=== PATIENT | female | born 1990 | race Two or more races ===

== ENCOUNTER 2018-02-16 11:44 | Emergency (ER) | payer MEDICAID ==
[~2018-02-16] VITALS: Ht 177.8 cm; Wt 89.8 kg
[2018-02-16] MEDS ORDERED: ONDANSETRON ODT 4 MG TAB PO ONE (12:15)
[2018-02-16 13:24] LABS: Basophils # (auto) 0 uL; Basophils % (auto) 0.4 % (0.0-2.0); Eosinophils # (auto) 0 uL; Eosinophils % (auto) 0.1 % (0.0-7.0); Hematocrit 44.8 % (36.0-46.0); Hemoglobin 14.9 g/dL (12.2-16.2); Lymphocytes # (auto) 1.1 uL; Lymphocytes % (auto) 11.8 % (10.0-50.0); Mean Corpuscular Hemoglobin 30.3 pg (28.0-32.0); Mean Corpuscular Hgb Conc. 33.2 g/dL (32.0-36.0); Mean Corpuscular Volume 91.2 fL (80.0-100.0); Monocytes # (auto) 0.5 uL; Monocytes % (auto) 5.1 % (0.0-12.0); Neutrophils # (auto) 7.7 uL; Neutrophils % (auto) 82.6 % (37.0-80.0); Nucleated Red Blood Cells % 0.1 %; Platelet Count (auto) 186 10^3/uL (140-450); Red Blood Cells 4.91 10^6/uL (4.0-5.20); Red Cell Distribution Width 12.5 % (11.8-14.3); White Blood Cell 9.3 10^3/uL (4.4-10.8)
[2018-02-16] MEDS ORDERED: cefTRIAXone 1GM/50ML D5W 50 ML IV ONE (13:30)
[2018-02-16] MEDS ORDERED: MECLIZINE HCL 25 MG TAB PO ONE (13:30)
[2018-02-16 14:09] LABS: Chloride 108 mmol/L (98-107); Potassium 4.5 mmol/L (3.5-5.1); Sodium 139 mmol/L (136-145)
[2018-02-16 14:10] LABS: Alanine Aminotransferase 27 U/L (13-56); Albumin 4.2 g/dL (3.4-5.0); Alkaline Phosphatase 99 U/L (45-117); Anion Gap 9 (5-15); Aspartate Aminotransferase 17 U/L (15-37); BUN/Creatinine Ratio 16.5; Bilirubin, Total 0.4 mg/dL (0.2-1.0); Blood Urea Nitrogen 14 mg/dL (7-18); Calcium 8.5 mg/dL (8.5-10.1); Carbon Dioxide 22 mmol/L (21-32); GFR African American 105 mL/min; GFR Non-African American 87 mL/min; Glucose 108 mg/dL (74-106); Total Protein 8.2 g/dL (6.4-8.2)
[2018-02-16 18:21] VITALS: BP 122/71
== END 2018-02-16 17:58 | disposition home or self-care (01) ==
LOC: ER 11:44
DX: H81.13 Benign paroxysmal vertigo, bilateral (principal); J18.9 Pneumonia, unspecified organism
CPT/HCPCS: 36415; 70450; 71046; 80053; 83735; 84443; 84484; 84702; 85025; 87040; 93005; 96365; 99284; J0696; J8597; Q0162

== ENCOUNTER 2018-04-14 10:02 | Emergency (ER) | payer MEDICAID ==
[~2018-04-14] VITALS: Ht 177.8 cm; Wt 90.7 kg
[2018-04-14 10:10] VITALS: BP 133/82
[2018-04-14] MEDS ORDERED: SODIUM CHLORIDE 0.9% 1,000 ML IV ONE (10:22)
[2018-04-14] MEDS ORDERED: MECLIZINE HCL 25 MG TAB PO ONE (10:30)
== END 2018-04-14 17:54 | disposition left against medical advice (07) ==
LOC: ER 10:02
DX: R42 Dizziness and giddiness (principal); Z53.21 Procedure and treatment not carried out due to patient leaving prior to being seen by health care provider